=== PATIENT | female | born 2005 | race Caucasian/White ===

== ENCOUNTER 2024-02-07 19:42 | Outpatient (REF) | payer OTHER, SELFPAY ==
--- OUTSIDE RECORDS SUMMARY | 2024-02-07 19:44 | XMS_ITS ---
Author Organization [facility] enter [place] Address [address] [place], [place] [id number] Care Team Providers Care Instrumentation And Controls Technician Name Role Phone Sreedhar Pablo Unavailable [phone] Hugh Corey Unavailable ALLERGIES No Known Allergies RESULTS Component Value Reference Range Notes Rapid Strep Reviewed date:01/12/2024 05:17:19 PM Interpretation: Performing Lab: Notes/Report: Pod3 ([id number]), [facility] Lot: [id number] Undercollar Maker: admin Strep A Negative Rapid Influenza A & B by RICARDO Reviewed date:02/04/2024 02:46:01 PM Interpretation:Negative for Influezna Performing Lab: Notes/Report: Influenza A, RICARDO Not Detected Not Detected Influenza B, RICARDO Not Detected Not Detected Rapid Covid Reviewed date:02/04/2024 02:46:46 PM Interpretation:Positive for SARS-CoV2 RNA Performing Lab: Notes/Report: SARS CoV-2 RICARDO Positive Negative REASON FOR VISIT Possible Moca, white sores in throat, body aches, headaches, congestion. AM,MA MEDICATIONS Medication SIG (Take, Route, Frequency, Duration) Notes Start Date End Date Status Amphetamine-Dextroamphetamin e 10 MG 1 tablet Orally once a day for 30 days 03/03/2024 Active Vyvanse 50 MG Oral 06/06/2021 Activ e buPROPion HCl ER (XL) 300 MG 1 tablet in the morning Oral Once a day for 90 days 12/24/2021 Active Lisdexamfetamine Dimesylate 50 MG 1 capsule in the morning Orally Once a day for 30 days 01/04/2024 Active Lisdexamfetamine Dimesylate 50 MG 1 capsule in the morning Orally Once a day for 30 days 02/03/2024 Active Lisdexamfetamine Dimesylate 30 MG 1 capsule in the morning Orally Once a day for 30 days 03/03/2024 Active Amphetamine-Dextroamphetamin e 10 MG 1 tablet Orally once a day for 30 days 01/04/2024 Active Amphetamine-Dextroamphetamin e 10 MG 1 tablet Orally once a day for 30 days 02/03/2024 Active SOCIAL HISTORY Tobacco Use: Social History Observation Description Date Details (start date - stop date) Never Smoker NA - NA Sex Assigned At : Social History Observation Description Sex Assigned At Unknown Tobacco Use/Smoking Question Answer Notes Tobacco use: nonsmoker Alcohol Screen (Audit-C) Question Answer Notes Did you have a drink containing alcohol in the p ast year? No Points 0 Interpretation Negative Tobacco use other than smoking: Question Answer Notes Are you an other tobacco user? No VITAL SIGNS Temperature 96.8 degrees Fahrenheit 01/12/20 24 Blood pressure systolic 106 mm Hg 01/12/20 24 Blood pressure diastolic 68 mm Hg 024 Heart Rate 78 /min 01/12/2024 Height 65 in 01/12/2024 Weight 133.38 lbs 01/12/2024 BMI 22.19 kg/m2 01/12/2024 Oximetry 98 % 01/12/2024 Height-cm 165.10 cm 01/12/2024 Weight-kg 60.5 kg 01/12/2024 Encounters Encounter Location Date Provider Diagnosis [facility] [address] [place], [place] [id number] 01/12/2024 Hugh Corey COVID U07.1 ; Sore throat J02.9 ; Major depressive disorder, single episode, moderate F32.1 and Body mass index [BMI] pediatric, 5th percentile to less than 85th percentile for age Z68.52 ASSESSMENTS Encounter Date Diagnosis Assessment Notes Treatment Notes Treatment Clinical Notes 01/12/2024 COVID (ICD-10 - U07.1) Tested positive for COVID-19 Reviewed treatment options- echinacea with goldenseal Patient may increase vitamin C, Zinc, and vitamin D. Instructed to isolate for 5 days, with an additional 5 days of increased caution and mask-wearing. If the patient has repeat test return a negative result, they may return to normal activity sooner. Additionally, if they continue to have fevers, it can be assumed they are still contagious. If SOB, Chest pain, increased WOB, or oxygen saturations drop below 90% - pt instructed to go to ER. Otherwise, RTC if persistent or worsening of symptoms. 01/12/2024 Sore throat (ICD-10 - J02.9) 01/12/2024 Major depressive disorder, single episode, moderate (ICD-10 - F32.1) Pt attestation review: for depression Doing well on current medication. Denies any side effects. Pt continues therapy with a counselor. Pt denies suicidal ideation. Discussed that medication should continue for at least 6-12 months, but if any continuing symptoms, or a recurrent depression, then likely expect to be treated intermediate designer. Do not stop medication suddenly. RTC when requested by PCP, for med check, sooner if any change in symptoms or side effects. 01/12/2024 Body mass index [BMI] pediatric, 5th percentile to less than 85th percentile for age (ICD-10 - Z68.52) Healthy weight for patient's height. Encouraged healthy diet and regular exercise. 01/12/2024 Other Liane Root PNP PLAN OF TREATMENT Treatment Notes Assessment Notes COVID Tested positive for COVID-19 Reviewed treatment options- echinacea with goldenseal Patient may increase vitamin C, Zinc, and vitamin D. Instructed to isolate for 5 days, with an additional 5 days of increased caution and mask-wearing. If the patient has repeat test return a negative result, they may return to normal activity sooner. Additionally, if they continue to have fevers, it can be assumed they are still contagious. If SOB, Chest pain, increased WOB, or oxygen saturations drop below 90% - pt instructed to go to ER. Otherwise, RTC if persistent or worsening of symptoms. Major depressive disorder, s partha episode, moderate Pt attestation review: for depression Doing well on current medication. Denies any side effects. Pt continues therapy with a counselor. Pt denies suicidal ideation. Discussed that medication should continue for at least 6-12 months, but if any continuing symptoms, or a recurrent depression, then likely expect to be treated intermediate designer. Do not stop medication suddenly. RTC when requested by PCP, for med check, sooner if any change in symptoms or side effects. Body mass index [BMI] pediat shelley, 5th percentile to less than 85th percentile for age Healthy weight for patient's height. Encouraged healthy diet and regular exercise. Peter EVANS Next Appt Details Follow Up: prn, Reason: Progress Notes * ABBY RASMUSSEN MDOB:2004 (18 yo F)Acc No.[id number]:01/12/2024 Patient:??ABBY RASMUSSEN Provider:??Hugh Corey M.D. :2005?Age:18 Y?Sex:Fe male Date:01/12/2024 Address:[facility] [address] [id number] Subjective: * Chief Complaints: * ?1. Possible Moca, whit e sores in throat, body aches, headaches, congestion. AM,RICKEY. * HPI: ?*General HPI:? Pt with mother. ?Pt has had a sore throat, congestion, body aches, headache and sores in throat, for 1 day. ?No fever. ?Eating and drinking normal ?has taken DayQuil, ?Tylenol and ibuprofen, given @ 1530 today. * ROS:?General / Constitutional:?Patient denies??fever, cough, shortness of breath, nausea/vomiting, diarrhea, abdominal pain, dysuria.? * Medical History:?? * Surgical History:??Denies Nghia chapman Surgical History. * Hospitalization/Major Diagno stic Procedure:??Denies Past Hospitalization. * Family History:??3 brother(s ) , 1 sister(s) - healthy. .?? * Social History:?Tobacco Use:?Tobacco Use/Smoking?Tobacco use:??nonsmoker ?Tobacco use other than smoking?Are you an other tobacco user???No ?Household For Adult:?Employment: No. ?Martial Status: Single. ?Exercise: Basketball. ?Children: none. ?Drugs/Alcohol:?Drugs?Have you used drugs other than those for medical reasons in the past 12 months???No ?Do you smoke marijuana?: Denies. ?Do you drink alcohol?: No. * Medications:??Taking Vyvanse 50 MG Capsule Oral , Taking buPROPion HCl ER (XL) 300 MG Tablet Extended Release 24 Hour 1 tablet in the morning Oral Once a day , Taking Lisdexamfetamine Dimesylate 50 MG Capsule 1 capsule in the morning Orally Once a day , Taking Lisdexamfetamine Dimesylate 50 MG Capsule 1 capsule in the morning Orally Once a day , Taking Lisdexamfetamine Dimesylate 30 MG Capsule 1 capsule in the morning Orally Once a day , Taking Amphetamine-Dextroamphetamine 10 MG Tablet 1 tablet Orally once a day after vyvanse has worn off, Taking Amphetamine-Dextroamphetamine 10 MG Tablet 1 tablet Orally once a day after vyvanse has worn off, Taking Amphetamine-Dextroamphetamine 10 MG Tablet 1 tablet Orally once a day after vyvanse has worn off, Medication List reviewed and reconciled with the patient * Allergies:??N.K.D.A. Objective: * Vitals:??Ht:65in, Wt-k. 5, Wt:133.38lbs, BMI: 22.19 Index, Temp:96.8F, Oxygen sat %:98%, BP:106/68mm Hg, HR:78/min, Ht-cm: 165.10 cm, Body Surface Area: 1.66. * Examination: ?General Examination: ?General appearance:??alert, pleasant, well-nourished and in no acute distress.?Eyes:??pupils equal, round, reactive to light and accommodation, extraocular movement intact (EOMI).?Ears:??tympanic membrane intact and clear, light reflex present, both ears.?Nose:??nares patent.?Oral cavity:??normal.?Throat:??swollen and red tonsils, with white exudate on tonsils, uvula midline.?Neck / thyroid:??neck is supple, with full range of motion and no cervical lymphadenopathy.?Skin:??skin is warm and dry, with no rashes, good skin turgor and normal hair distribution.?Heart:??regular rate and rhythm without murmurs, gallops, clicks or rubs.?Lungs:??clear to auscultation bilaterally, with good air movement and no rales, rhonchi or wheezes.?Chest:??chest wall with no costochondral junction tenderness, no rib deformity and normal shape and expansion.?Abdomen:??soft with good bowel sounds, nontender, and no masses or hepatosplenomegaly.?Extremities:??normal extremity with no clubbing, cyanosis or edema.?Peripheral pulses:??2+ radial.?Neurologic:??alert and oriented, cooperative with exam, cognitive exam grossly normal.? Assessment: * Assessment: 1.??COVID - U07.1 (Primary)? ?2.??Sore throat - J02.9??3.??Major depressive disorder, single episode, moderate - F32.1, Src Problem: MAJOR MODERATE DEPRESSION, SINGLE EPISODE??4.??Body mass index [BMI] pediatric, 5th percentile to less than 85th percentile for age - Z68.52?? Plan: * Treatment: 2.??Major depressive disorde r, single episode, moderate?? Notes: Pt attestation review: for depression Doing well on current medication. Denies any side effects. Pt continues therapy with a counselor. Pt denies suicidal ideation. Discussed that medication should continue for at least 6-12 months, but if any continuing symptoms, or a recurrent depression, then likely expect to be treated retirement. Do not stop medication suddenly. RTC when requested by PCP, for med check, sooner if any change in symptoms or side effects.? 3.??Body mass index [BMI] pe diatric, 5th percentile to less than 85th percentile for age?? Notes: Healthy weight for patient's height. Encouraged healthy diet and regular exercise.? 4.??Others?LAB: Rapid Influenza A & B by RICARDO (Collection Date & Time - 01/12/2024 11:52 AM) ?LAB: Rapid Covid (Collection Date & Time - 01/12/2024 11:52 AM) ?LAB: Rapid Strep (Collection Date & Time - 01/12/2024 04:49 PM) Notes: Liane Root PNP? * Labs:?? * ?Lab: Rapid Influen za A & B by RICARDO (Collection Date & Time - 01/12/2024 11:52 AM)??Negative for Influezna ? Value Reference Range ?Influenza A, RICARDO Not Detected N ot Detected - * ?Influenza B, RICARDO Not Detected N ot Detected - ?Lab: Rapid Covid (Collection Date & Time - 01/12/2024 11:52 AM) ??Positive for SARS-CoV2 RNA* ? Value Reference Range ?SARS CoV-2 RICARDO Positive A Neg ative - ?Lab: Rapid Strep (Collection Date & Time - 01/12/2024 04:49 PM)* ? Value Reference Range ?Strep Grp A, RICARDO Negative - * Procedure Codes:??27474 Offi ce Visit, Est Pt., Level 4, 99446 COVID IN-HOUSE TESTING, Modifiers: QW , 29072 INFLUENZA DNA AMP PROBE, Modifiers: QW , 15513 STREP A, DNA, AMP PROBE, Modifiers: QW * Follow Up:??prn * Billing Information: * Visit Code:?? * Procedure Codes:?? 66024 Office Visit, Est Pt., Level 4. 93528 COVID IN-HOUSE TESTING. Modifiers: QW 96976 INFLUENZA DNA AMP PROBE. Modifiers: QW 93765 STREP A, DNA, AMP PROBE. Modifiers: QW * Sign off status: Pending * Provider:??Hugh Corey M.D. Mukesh e:??01/12/2024 History and Physical Notes * Examination Category Sub-Category Detail Notes General Examination General appearance: alert, p leasant, well-nourished and in no acute distress Eyes: pupils equal, round, reactive to light and accommodation, extraocular movement intact (EOMI) Ears: tympanic membrane in tact and clear, light reflex present, both ears Nose: nares patent Throat: swollen and red tons ils, with white exudate on tonsils, uvula midline Neck / thyroid: neck is supple, with full range of motion and no cervical lymphadenopathy Heart: regular rate and rhy thm without murmurs, gallops, clicks or rubs Chest: chest wall with no c ostochondral junction tenderness, no rib deformity and normal shape and expansion Lungs: clear to auscultatio n bilaterally, with good air movement and no rales, rhonchi or wheezes Abdomen: soft with good bowel sounds, nontender, and no masses or hepatosplenomegaly Neurologic: alert and oriented, cooperative with exam, cognitive exam grossly normal Skin: skin is warm and dry , with no rashes, good skin turgor and normal hair distribution Extremities: normal extremity wit h no clubbing, cyanosis or edema Peripheral pulses: 2+ radial Oral cavity: normal
--- OUTSIDE RECORDS SUMMARY | 2024-02-07 19:44 | XMS_ITS ---
Author Organization [facility] Address [address] [place], [place] [id number] Care Team Providers Care Meteorology Faculty Member Name Role Phone Pablo Eli Unavailable [phone] Neeraj Matta Unavailable [phone] ALLERGIES No Known Allergies REASON FOR VISIT Adult annual wellness W/O PAP MEDICATIONS Medication SIG (Take, Route, Frequency, Duration) Notes Start Date End Date Status Amphetamine-Dextroamphetamin e 10 MG 1 tablet Orally once a day for 30 days 03/03/2024 Active Lisdexamfetamine Dimesylate 30 MG 1 capsule in the morning Orally Once a day for 30 days 03/03/2024 Active Lisdexamfetamine Dimesylate 50 MG 1 capsule in the morning Orally Once a day for 30 days 02/03/2024 Active Amphetamine-Dextroamphetamin e 10 MG 1 tablet Orally once a day for 30 days 02/03/2024 Active Amphetamine-Dextroamphetamin e 10 MG 1 tablet Orally once a day for 30 days 01/04/2024 Active buPROPion HCl ER (XL) 300 MG 1 tablet in the morning Oral Once a day for 90 days 12/24/2021 Active Vyvanse 50 MG Oral 06/06/2021 Activ e Lisdexamfetamine Dimesylate 50 MG 1 capsule in the morning Orally Once a day for 30 days 01/04/2024 Active Encounters Encounter Location Date Provider Diagnosis [facility] [address] [place], [place] [id number] 01/05/2024 Neeraj Matta Encounter for genera l adult medical examination without abnormal findings Z00.00 ASSESSMENTS Encounter Date Diagnosis Assessment Notes Treatment Notes Treatment Clinical Notes 01/05/2024 Encounter for general adult medical examination without abnormal findings (ICD-10 - Z00.00) PLAN OF TREATMENT Next Appt Details Follow Up: 1 Year, Reason: W shan check Progress Notes * ABBY RASMUSSEN MDOB:2004 (18 yo F)Acc No.[id number]:01/05/2024 Wellness with no pap Patient:??ABBY RASMUSSEN M Provider:??VENKATA Page :2005?Age:18 Y?Sex:Fe male Date:01/05/2024 Address:[facility] [address] [id number] Subjective: * Chief Complaints: * ?1. Adult annual wellne ss W/O PAP. * ROS:?General / Constitutional:?Patient denies??fever, congestion, cough, shortness of breath, nausea/vomiting, diarrhea, abdominal pain, dysuria ?.? * Medical History:??Medical Hi story Verified. * Surgical History:??Denies Pa st Surgical History. * Hospitalization/Major Diagno stic Procedure:??Denies Past Hospitalization. * Family History:??3 brother(s ) , 1 sister(s) - healthy. .??Non-Contributory.?? * Social History:?Household For Adult:?Employment: No. ?Martial Status: Single. ?Exercise: Basketball. ?Children: none. * Medications:??Taking Vyvanse 50 MG Capsule Oral [...] with the patient * Allergies:??N.K.D.A. Objective: * Examination: ?General Examination: ?General appearance:??alert, pleasant, well-nourished and in no acute distress.?Head:??normocephalic, atraumatic.?Eyes:??pupils equal, round, reactive to light and accommodation, extraocular movement intact (EOMI).?Ears:??auditory canal clear, tympanic membrane intact and clear bilaterally.?Nose:??nares patent.?Oral cavity:??normal.?Throat:??clear, no erythema, no exudate.?Neck / thyroid:??neck is supple, with full range of motion and no cervical lymphadenopathy.?Lymph nodes:??no cervical lymphadenopathy.?Skin:??skin is warm and dry, with [...] hepatosplenomegaly.?Extremities:??normal extremity with no clubbing, cyanosis or edema.?Neurologic:??alert and oriented, cooperative with exam, cognitive exam grossly normal.? Assessment: * Assessment: 1.??Encounter for general ad ult medical examination without abnormal findings - Z00.00 (Primary)?? Plan: * Treatment: * Procedure Codes:??87502 No S how * Follow Up:??1 Year (Reason: Well check) * Billing Information: * Visit Code:?? * Procedure Codes:?? 50669 No Show. * Sign off status: Pending * Provider:??VENKATA Page Date:??12/22 History and Physical Notes * Examination Category Sub-Category Detail Notes General Examination General appearance: alert, p leasant, well-nourished and in no acute distress Head: normocephalic, atrau matic Eyes: pupils equal, round, reactive to light and accommodation, extraocular movement intact (EOMI) Ears: auditory canal clear , tympanic membrane intact and clear bilaterally Nose: nares patent Throat: clear, no erythema, no exudate Neck / thyroid: neck is supple, with [...] wit h no clubbing, cyanosis or edema Lymph nodes: no cervical lymphade nopathy Oral cavity: normal
--- OUTSIDE RECORDS SUMMARY | 2024-02-07 19:45 | XMS_ITS | Continuity of Care Document ---
Author Organization [facility] Address [address] [place] [id number] Care Team Providers Care Learning Coach Name Role Phone NOLBERTO DOWNS Primary Care Physician Encounter Date(s): 01/09/23 - 01/09/23 [facility] [address] [address] Discharge Disposition: Home or Self Care Attending Physician: JESSI DOWNS KEVIN A. Admitting Physician: JESSI DOWNS KEVIN A. Allergies, Adverse Reactions, Alerts No Known Allergies Assessment and Plan Future Appointments Appointment Date:04/13/2023 02:20:00 PM Scheduled Provider:MD BROWN LINDSAY H. Location:[facility] Appointment Type:DE RO Routine Office Visit Immunizations Given and Recorded Vaccine Date Status Refusal Reason SARS-CoV-2 (COVID-19) mRNA-1273 vaccine 1, 2 06/07/21 Given influenza virus vaccine, inactivated 3, 4 04/08/21 Given influenza virus vaccine, inactivated 5, 6 05/10/20 Given influenza virus vaccine, inactivated 7, 8 04/01/19 Given influenza virus vaccine, inactivated 9, 10 04/04/18 Given SARS-CoV-2 (COVID-19) mRNA BNT-162b2 vac 11, 12 1 Given SARS-CoV-2 (COVID-19) mRNA BNT-162b2 vac 13, 14 1 Given meningococcal conjugate vaccine 15, 16 05/10/ Gi griselda human papillomavirus vaccine 17, 18 18 Given human papillomavirus vaccine 19, 20 01/24/16 Given tetanus/diphth/pertuss (Tdap) adult/adol 21, 22 01/24/16 Given meningococcal vaccine 23 12/18/15 Given influenza virus vaccine, live 24, 25 04/26/12 Give n measles/mumps/rubella virus vaccine 26, 27 10/31/08 Given measles/mumps/rubella virus vaccine 28, 29 12/04/04 Given poliovirus vaccine, inactivated 30, 31 10/31/08 Gi griselda poliovirus vaccine, inactivated 32, 33 03/27/04 Gi griselda poliovirus vaccine, inactivated 34, 35 03 Gi griselda poliovirus vaccine, inactivated 36, 37 03 Gi griselda diphtheria/pertussis, acel/tetanus ped 38 10/31/08 Given diphtheria/pertussis, acel/tetanus ped 39, 40 03 Given diphtheria/pertussis, acel/tetanus ped 41, 42 03 Given diphtheria/pertussis, acel/tetanus ped 43, 44 03 Given varicella virus vaccine 45, 46 10/31/08 Given varicella virus vaccine 47, 48 12/04/04 Given hepatitis A pediatric vaccine 49, 50 10/31/08 Give n hepatitis A pediatric vaccine 51, 52 09/08/05 Give n pneumococcal 7-valent vaccine 53, 54 12/04/04 Give n pneumococcal 7-valent vaccine 55, 56 07/02/04 Give n pneumococcal 7-valent vaccine 57, 58 03 Give n pneumococcal 7-valent vaccine 59, 60 03 Give n diphth/tetanus/pertusis,acel/haemophilus 61, 62 07/02/04 Given hepatitis B pediatric vaccine 63, 64 03/27/04 Give n hepatitis B pediatric vaccine 65 03 Given influenza virus vaccine, split virus 66, 67 03/27/04 Given haemophilus b conjugate (HbOC) vaccine 68, 69 03 Given haemophilus b conjugate (HbOC) vaccine 70, 71 03 Given haemophilus b-hepatitis B vaccine 72, 73 03 Given 1Location History: [address] 2Result Comment: New immunization record 3Location History: [address] [facility] 4Result Comment: New immunization record 5Location History: [address] 6Result Comment: New immunization record 7Location History: [address] 8Result Comment: New immunization record 9Location History: [address] 10Result Comment: New immunization record 11Location History: [address] 12Result Comment: New immunization record 13Location History: [address] 14Result Comment: New immunization record 15Location History: [address] 16Result Comment: New immunization record 17Location History: [address] 18Result Comment: New immunization record 19Location History: [address] 20Result Comment: New immunization record 21Location History: [address] 22Result Comment: New immunization record 23Result Comment: Historical information - source unspecified 24Location History: [address] 25Result Comment: New immunization record 26Location History: [address] 27Result Comment: New immunization record 28Location History: [address] 29Result Comment: New immunization record 30Location History: [address] 31Result Comment: New immunization record 32Location History: [address] 33Result Comment: New immunization record 34Location History: [address] 35Result Comment: New immunization record 36Location History: [address] 37Result Comment: New immunization record 38Result Comment: Historical information - source unspecified 39Location History: [address] 40Result Comment: New immunization record 41Location History: [address] 42Result Comment: New immunization record 43Location History: [address] 44Result Comment: New immunization record 45Location History: [address] 46Result Comment: New immunization record 47Location History: [address] 48Result Comment: New immunization record 49Location History: [address] 50Result Comment: New immunization record 51Location History: [address] 52Result Comment: New immunization record 53Location History: [address] 54Result Comment: New immunization record 55Location History: [address] 56Result Comment: New immunization record 57Location History: [address] 58Result Comment: New immunization record 59Location History: [address] 60Result Comment: New immunization record 61Location History: [address] 62Result Comment: New immunization record 63Location History: [address] 64Result Comment: New immunization record 65Result Comment: Historical information - source unspecified 66Location History: [address] 67Result Comment: New immunization record 68Location History: [address] 69Result Comment: New immunization record 70Location History: [address] 71Result Comment: New immunization record 72Location History: [address] 73Result Comment: New immunization record Medications Bactrim DS 800 mg-160 mg oral tablet trimethoprim 1 tabs, Oral, BID, X 30 days, # 60 tabs, 2 Refill(s), Signed: 11/18/21 9:24:00 MDT, Acute, 02/16/22, Pharmacy: [facility] [id number] [facility], 1 tabs Oral BID,x30 days Start Date: 11/18/21 Stop Date: 02/16/22 Status: Completed ISOtretinoin 40 mg oral capsule 1 cap, Oral, Daily, with food [id number], # 30 cap, 0 Refill(s), Signed: 12/18/21 9:49:00 Jaky WILLIAM, Pharmacy: [facility] [id number] [facility] Start Date: 12/18/21 Stop Date: 01/12/22 Status: Completed ISOtretinoin 40 mg oral capsule 1 cap, Oral, Daily, with food [id number], # 30 cap, 0 Refill(s), Signed: 01/12/22 8:22:00 MDT, Maintenance, Pharmacy: [facility] [id number] [facility], 1 cap Oral Daily,Instr:with food; [id number] Start Date: 01/12/22 Status: Ordered spironolactone 100 mg oral tablet 1 tabs, Oral, Daily, # 90 tabs, 3 Refill(s), Signed: 07/21/21 10:07:00 MST, Maintenance, Pharmacy: [facility] [id number] [facility], 1 tabs Oral Daily, Acne Start Date: 07/21/21 Status: Ordered sulfamethoxazole-trimethoprim 400 mg-80 mg oral tablet trimethoprim 1 tabs, Oral, BID, X 10 days, # 30 tabs, 1 Refill(s), Signed: 06/30/22 17:24:00 MST, Acute, 07/20/22, Pharmacy: [facility] [id number] [facility], 1 tabs Oral BID,x10 days Start Date: 06/30/22 Stop Date: 07/20/22 Status: Completed tretinoin 0.025% topical cream 1 appl, Topical, Daily at bedtime, # 30 g, 3 Refill(s), Signed: 07/21/21 10:11:00 MST, Maintenance,Pharmacy: [facility] [id number] [facility], 1 appl Topical Daily at bedtime, Acne Start Date: 07/21/21 Status: Ordered Vyvanse 50 mg oral capsule 1 cap, Oral, every morning, 0 Refill(s), Signed: 07/21/21 9:58:00 MST, Maintenance Start Date: 07/21/21 Status: Ordered Wellbutrin SR 150 mg/12 hours oral tablet, extended release 1 tabs, Oral, BID, 0 Refill(s), Signed: 07/21/21 9:58:00 MST, Maintenance Start Date: 07/21/21 Status: Ordered Problem List Condition Confirmation Course Effective Dates Status Health St [facility] Informant Acne Confirmed Active Medication monitoring encounter Confirmed Active Social History Social History Type Response Smoking Status Never smoker entered on: 11/18/21 Sex Patient Care team information Care Team Personnel Name: JESSI DOWNS, NOLBERTO Bowens Position: Nurse Practitioner ALEXANDER Member Role: Primary Care Physician Address: Address: [facility] [address] [facility] Care Team Related Persons Name: LEILA RASMUSSEN Address: Home [address] [place], [place] [id number] [facility] Address: Temporary [address] [place], [place] [id number] Name: ONESIMO RASMUSSEN
--- OUTSIDE RECORDS SUMMARY | 2024-02-07 19:45 | XMS_ITS ---
Author Organization [facility] Address [address] [place], [place] [id number] Care Team Providers Care Sustainable Development Policy Analyst Name Role Phone Pablo Eli Unavailable [phone] PaxtonNeeraj khan Unavailable [phone] ALLERGIES No Known Allergies REASON FOR VISIT MED CHK AH, MA MEDICATIONS Medication SIG (Take, Route, Frequency, Duration) Notes Start Date End Date Status Amphetamine-Dextroamphetamin e 10 MG 1 tablet Orally once a day for 30 days 02/03/2024 Active Amphetamine-Dextroamphetamin e 10 MG 1 tablet Orally once a day for 30 days 03/03/2024 Active buPROPion HCl ER (XL) 300 MG 1 tablet in the morning Oral Once a day for 90 days 12/24/2021 Active Vyvanse 50 MG Oral 06/06/2021 Activ e Amphetamine-Dextroamphetamin e 10 MG 1 tablet Orally once a day for 30 days 01/04/2024 Active Lisdexamfetamine Dimesylate 50 MG 1 capsule in the morning Orally Once a day for 30 days 02/03/2024 Active Lisdexamfetamine Dimesylate 50 MG 1 capsule in the morning Orally Once a day for 30 days 01/04/2024 Active Lisdexamfetamine Dimesylate 30 MG 1 capsule in the morning Orally Once a day for 30 days 03/03/2024 Active SOCIAL HISTORY Tobacco Use: Social History [...] ast year? No Points 0 Interpretation Negative VITAL SIGNS Temperature 96.5 degrees Fahrenheit 01/04/20 24 Blood pressure systolic 116 mm Hg 01/04/20 24 Blood pressure diastolic 73 mm Hg 024 Heart Rate 68 /min 01/04/2024 Height 65 in 01/04/2024 Weight 131.06 lbs 01/04/2024 BMI 21.81 kg/m2 01/04/2024 Oximetry 97 % 01/04/2024 Height-cm 165.10 cm 01/04/2024 Weight-kg 59.45 kg 01/04/2024 Encounters Encounter Location Date Provider Diagnosis [facility] [address] [place], [place] [id number] 01/04/2024 Neeraj Matta Major depressive disorder, single episode, moderate F32.1 and Attention-deficit hyperactivity disorder, predominantly inattentive type F90.0 ASSESSMENTS Encounter Date Diagnosis Assessment Notes Treatment Notes Treatment Clinical Notes 01/04/2024 Major depressive disorder, single episode, moderate (ICD-10 - F32.1) Patient is following up for depression. Significant improvement on medication. Plan to: Continue wellbutrin No significant side effects. Continue with therapy if established, consider establishing if not. Patient denies suicidal ideation. Return to clinic for worsening symptoms, side effects, thoughts of self harm, or other concerns. 01/04/2024 Attention-deficit hyperactivity disorder, predominantly inattentive type (ICD-10 - F90.0) -After reviewing the effects of the prescribed medication on this patient and discussing changes in behaviors at home and work we have decided to continue the same medications. It was recommended to take medication with food on a daily basis. Follow up in 3-6 months or sooner if needed. -In conjunction with prescribing a controlled substance, the [facility] was reviewed and patient prescription behavior is compliant with treatment plan. 01/04/2024 Other PLAN OF TREATMENT Medication Medication Name Sig Start Date Stop Date Notes Amphetamine-Dextroamphetamin e 10 MG 1 tablet Orally once a day for 30 days 02/03/2024 Amphetamine-Dextroamphetamin e 10 MG 1 tablet Orally once a day for 30 days 03/03/2024 buPROPion HCl ER (XL) 300 MG 1 tablet in the morning Oral Once a day for 90 days 12/24/2021 Amphetamine-Dextroamphetamin e 10 MG 1 tablet Orally once a day for 30 days 01/04/2024 Lisdexamfetamine Dimesylate 50 MG 1 caps ule in the morning Orally Once a day for 30 days 02/03/2024 Lisdexamfetamine Dimesylate 50 MG 1 caps ule in the morning Orally Once a day for 30 days 01/04/2024 Lisdexamfetamine Dimesylate 30 MG 1 caps ule in the morning Orally Once a day for 30 days 03/03/2024 Treatment Notes Assessment Notes Major depressive disorder, s partha episode, moderate Patient is following up for depression. Significant improvement on medication. Plan to: Continue wellbutrin No significant side effects. Continue with therapy if established, consider establishing if not. Patient denies suicidal ideation. Return to clinic for worsening symptoms, side effects, thoughts of self harm, or other concerns. Attention-deficit hyperactiv ity disorder, predominantly inattentive type -After reviewing the effects of the prescribed medication on this patient and discussing changes in behaviors at home and work we have decided to continue the same medications. It was recommended to take medication with food on a daily basis. Follow up in 3-6 months or sooner if needed. -In conjunction with prescribing a controlled substance, the [facility] was reviewed and patient prescription behavior is compliant with treatment plan. Next Appt Details Follow Up: 3 Months, Reason: Progress Notes * ABBY RASMUSSEN MDOB:2004 (18 yo F)Acc No.[id number]:01/04/2024 Patient:??ABBY RASMUSSEN Provider:??VENKATA Page :2005?Age:18 Y?Sex:Fe male Date:01/04/2024 Address:[address] [place] [address] [address], [id number] Subjective: * Chief Complaints: * ?1. MED CHK RICKEY MACDONALD. * HPI: ?*General HPI:? Med refills. ?Transfer to [facility]. ?Still playing basketball. ?Doing well in school. * ROS:?No congestion, cough, fever, nausea/vomiting, diarrhea, abdominal pain, shortness of breath. * Medical History:??Medical Hi story Verified. * Surgical History:??Denies Pa st Surgical History. * Hospitalization/Major Diagno stic Procedure:??Denies Past Hospitalization. * Family History:??3 brother(s ) , 1 sister(s) - healthy. .?? * Social History:?Tobacco Use:?Tobacco Use/Smoking?Tobacco use:??nonsmoker ?Household For Adult:?Employment: No. ?Martial Status: Single. ?Exercise: Basketball. ?Children: none. ?Drugs/Alcohol:?Drugs?Have you used drugs other than those for medical reasons in the past 12 months???No ?Do you smoke marijuana?: Denies. ?Do you drink alcohol?: No. * Medications:??Taking Vyvanse 50 MG Capsule Oral , Taking buPROPion HCl ER (XL) 300 MG Tablet Extended Release 24 Hour Oral , Taking Lisdexamfetamine Dimesylate 50 MG Capsule [...] day after vyvanse has worn off, Taking Lisdexamfetamine Dimesylate 30 MG Capsule 1 capsule in the morning Orally Once a day , Medication List reviewed and reconciled with the patient * Allergies:??N.K.D.A. Objective: * Vitals:??Ht:65in, Wt-k. 45, Wt:131.06lbs, BMI: 21.81 Index, Temp:96.5F, Oxygen sat %:97%, BP:116/73mm Hg, HR:68/min, Ht-cm: 165.10 cm, Body Surface Area: 1.65. * Examination: ?General Examination: ?General appearance:??alert, pleasant, well-nourished and in no acute distress.?Head:??normocephalic, atraumatic.?Eyes:??open, no injection.?Oral cavity:??no difficulty swallowing, Normal voice.?Neck / thyroid:??No apparent limitation of movement.?Skin:??no visible rashes.?Lungs:??Breathing easily, no distress, no audible wheezing or coughing.?Abdomen:??Not visibly distended.?Extremities:??normal extremity cyanosis or edema, full range of motion, no purpura present.?Neurologic:??nonfocal, alert and oriented, cognitively intact, moves all extremities normally.?Psych:??normal affect / mood, cognitive function intact, cooperative with exam, maintains good eye contact,.? Assessment: * Assessment: 1.??Attention-deficit hypera ctivity disorder, predominantly inattentive type - F90.0 (Primary)??2.??Major depressive disorder, single episode, moderate - F32.1?? Plan: * Treatment: 2.??Major depressive disorde r, single episode, moderate?? Refill buPROPion HCl ER (XL) Tablet Extended Release 24 Hour, 300 MG, 1 tablet in the morning, Oral, Once a day, 90 days, 90 Tablet, Refills 3.? Notes: Patient is following up for depression. Significant improvement on medication. Plan to: Continue wellbutrin No significant side effects. Continue with therapy if established, consider establishing if not. Patient denies suicidal ideation. Return to clinic for worsening symptoms, side effects, thoughts of self harm, or other concerns. ? * Procedure Codes:??78392 Offi ce Visit, Est Pt., Level 3, 3074F SYST BP LT 130 MM HG, 3078F DIAST BP < 80 MM HG * Follow Up:??3 Months * Billing Information: * Visit Code:?? * Procedure Codes:?? 27298 Office Visit, Est Pt., Level 3. 3074F SYST BP LT 130 MM HG. 3078F DIAST BP < 80 MM HG. * Sign off status: Completed true * Provider:??VENKATA Page Date:??12/22 History and Physical Notes * Examination Category Sub-Category Detail Notes General Examination General appearance: alert, p leasant, well-nourished and in no acute distress Head: normocephalic, atrau matic Eyes: open, no injection Neck / thyroid: No apparent limitati on of movement Lungs: Breathing easily, no distress, no audible wheezing or coughing Abdomen: Not visibly distende d Neurologic: nonfocal, alert and oriented, cognitively intact, moves all extremities normally Skin: no visible rashes Extremities: normal extremity cya nosis or edema, full range of motion, no purpura present Psych: normal affect / mood , cognitive function intact, cooperative with exam, maintains good eye contact, Oral cavity: no difficulty swallo wing, Normal voice
--- OUTSIDE RECORDS SUMMARY | 2024-02-07 19:45 | XMS_ITS | Patient Health Record ---
Author Organization [facility] [place] Address [address] [place], [place] [phone] Care Team Providers Care Forms Analysis Manager Name Role Phone Pablo Eli Unavailable [phone] Hugh Corey Unavailable Neeraj Matta Unavailable [phone] Oscar Albarado Unavailable [phone] ALLERGIES No Known Allergies RESULTS Component Value Reference Range Notes Rapid Strep Reviewed date:01/12/2024 05:17:19 PM Interpretation: Performing Lab: Notes/Report: Pod3 ([id number]), [facility] Lot: [id number] Silk Trimmer: admin Strep A Negative Rapid Influenza A & B by RICARDO Reviewed date:02/04/2024 02:46:01 PM Interpretation:Negative for Influezna Performing Lab: Notes/Report: Influenza A, RICARDO Not Detected Not Detected Influenza B, RICARDO Not Detected Not Detected Rapid Covid Reviewed date:02/04/2024 02:46:46 PM Interpretation:Positive for SARS-CoV2 RNA Performing Lab: Notes/Report: SARS CoV-2 RICARDO Positive Negative REASON FOR REFERRAL No Information MEDICATIONS Medication SIG (Take, Route, Frequency, Duration) Notes Start Date End Date Status Lisdexamfetamine Dimesylate 30 MG 1 capsule in [...] a day for 30 days 02/03/2024 Active IMMUNIZATIONS Vaccine Route Administration Date Status Comme nts FluZone (Influenza) IM Intramuscular 03/17/2023 Administer ed HPV9 (human papillomavirus), nonavalent IM Intramuscular 01/24/2016 Administered HPV9 (human papillomavirus), nonavalent IM Intramuscular 04/04/2018 Administered Influenza, quadrivalent (IIV4), split virus, 6-35 months dosage IM Intramuscular 04/01/2019 Administered Influenza, quadrivalent (IIV4), split virus, 6-35 months dosage IM Intramuscular 05/10/2020 Administered Influenza, quadrivalent, split, preservative free, 3 years or older IM Intramuscular 04/04/2018 Administered Meningococcal MCV4P IM Intramuscular 05/10/2020 Administer ed SOCIAL HISTORY Tobacco Use: Social History Observation [...] Are you an other tobacco user? 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 [id number] M RI IHC 12/2022 Problem Major depressive disorder, single episode, moderate (F32.1) 019 Active confirmed Moderate major depression, single episode (66167604) Problem Attention-deficit hyperactivity disorder, predominantly inattentive type (F90.0) 020 Active confirmed Attention defici t hyperactivity disorder, predominantly inattentive type (19218505) Problem Acne vulgaris (L70.0) 021 Active confirmed Acne vulgaris (29793575) VITAL SIGNS Heart Rate 78 /min 01/12/2024 Temperature 96.8 degrees Fahrenheit 01/12/2024 Height-cm 165.10 cm 01/12/2024 Blood pressure diastolic 68 mm Hg 01/12/2024 Oximetry 98 % 01/12/2024 Weight-kg 60.5 kg 01/12/2024 BMI Percentile 56.04 % 03/17/2023 Height 65 in 01/12/2024 Blood pressure systolic 106 mm Hg 01/12/2024 Weight 133.38 lbs 01/12/2024 BMI 22.19 kg/m2 01/12/2024 Encounters Encounter Location Date Provider Diagnosis [facility] [address] [place], [place] [phone] 03/11/2023 Neeraj Matta [facility] [address] [place], [place] [id number] 09/29/2023 Oscar Albarado [facility] [address] [place], [place] [id number] 01/03/2024 Neeraj Matta [facility] [address] [place], [place] [phone] 01/05/2024 Neeraj Matta Encounter for general adult medical examination without abnormal findings Z00.00 [facility] [address] [place], [place] [id number] 01/12/2024 Hugh Lugoworth COVID U07.1 ; Sore throat J02.9 ; Major depressive disorder, single episode, moderate F32.1 and Body mass index [BMI] pediatric, 5th percentile to less than 85th percentile for age Z68.52 [facility] [address] [place], [place] [phone] 03/17/2023 Neeraj Matta Attention-deficit hyperactivity disorder, predominantly inattentive type F90.0 and Encounter for immunization Z23 [facility] [address] [place], [place] [phone] 01/04/2024 Neeraj Matta Major depressive disorder, single episode, moderate F32.1 and Attention-deficit hyperactivity disorder, predominantly inattentive type F90.0 [facility] [address] [place], [place] [id number] 05/31/2023 Neeraj Matta Attention-deficit hyperactivity disorder, predominantly inattentive type F90.0 [facility] [address] [place], [place] [phone] 03/14/2023 Pablo Eli ASSESSMENTS Encounter Date Diagnosis Assessment Notes Treatment Notes Treatment Clinical Notes 03/17/2023 Attention-deficit hyperactivity disorder, predominantly inattentive type (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 It was recommended to take medication with food on a daily basis. Follow up in 3 months or sooner if needed. -In conjunction with prescribing a controlled substance, the [facility] was reviewed and patient prescription behavior is compliant with treatment plan. 05/31/2023 Attention-deficit hyperactivity disorder, predominantly inattentive type (ICD-10 - F90.0) 01/04/2024 Major depressive disorder, single episode, moderate [...] conjunction with prescribing a controlled substance, the [facility] was reviewed and patient prescription behavior is compliant with treatment plan. 01/05/2024 Encounter for general adult medical examination without abnormal findings (ICD-10 - Z00.00) 01/12/2024 Sore throat (ICD-10 - J02.9) 01/12/2024 COVID (ICD-10 - U07.1) Tested positive [...] if persistent or worsening of symptoms. 01/12/2024 Major depressive disorder, single episode, moderate (ICD-10 - F32.1) Pt attestation review: for depression Doing well on current medication. Denies any side effects. Pt continues therapy with a counselor. Pt denies suicidal ideation. Discussed that medication should continue for at least 6-12 months, but if any continuing symptoms, or a recurrent depression, then likely expect to be treated senior care. Do not stop medication suddenly. RTC when requested by PCP, for med check, sooner if any change in symptoms or side effects. 03/17/2023 Encounter for immunization (ICD-10 - Z23) 01/12/2024 Body mass index [BMI] pediatric, 5th percentile to less than 85th percentile for age (ICD-10 - Z68.52) Healthy weight for patient's height. Encouraged healthy diet and regular exercise. 01/12/2024 Other Liane Root PNP 01/04/2024 Other PLAN OF TREATMENT No Information Insurance Providers Payer Name Payer Address Payer Phone Subscriber Number Group Number Insured Name Patient Relationship to Insured Coverage Start Date Coverage End Date [facility] [address] [address] [place] [address] [phone] [id number] Marie VALENZUELA Child - Insured does not have Financial Responsibility (includes legally adopted child)
[2024-02-09 13:24] LABS: Hemoglobin S Screen Negative (Negative)
== END 2024-02-07 19:43 | disposition home or self-care (01) ==
LOC: LBN 19:42
PROVIDERS: Visit Provider Nurse Practitioner Family
DX: Z02.5 Encounter for examination for participation in sport (principal); Z01.89 Encounter for other specified special examinations
CPT/HCPCS: 85660

== ENCOUNTER 2024-04-03 20:43 | Emergency (ER) | payer OTHER, SELFPAY ==
[2024-04-03 20:47] VITALS: BP 127/82; PULSE 70; RESP 20; TEMP 36.8; O2SAT 98
--- NOTE | 2024-04-03 21:56 | ED.GENADUL_ITS ---
Discharge Plan Disposition Patient Disposition: Home Condition: Good Discharge Details Clinical Impression: Loose tooth due to trauma Primary Care Provider: Unknown,Unknown ED Provider: Caitlyn Manrique Home Meds and New Rx's Prescriptions: Continued dextroamphetamine-amphetamine [Adderall] 10 mg tablet 10 mg PO DAILY bupropion HCl [Wellbutrin SR] 100 mg tablet sustained-release 12 hr 150 mg PO DAILY lisdexamfetamine [Vyvanse] 50 mg capsule 50 mg PO DAILY Discharge Instructions Additional Instructions: Please call a local dentist (from list provided, or [facility], which provides emergency dental services at [phone]) to have a dental exam and treatment. Do not eat any firm foods- stick to a soft diet. Use tylenol and ibuprofen as needed for discomfort. HPI General Date/Time Provider Initiated Documentation: 04/03/24 20:50 . HPI Narrative: Berkley is a 18 year old female who presents to the emergency department today for evaluation of tooth pain after being elbowed by another player during basketball. She reports pain and loose R lower incisor tooth with generalized discomfort to her front teeth. She has a retainer bar in place. No neck pain, o ther dental damage, head injury. She does not have a local dentist, moved here from [place]. No diabetes, immunocompromise, or other serious medical conditions. Physical exam reassuring, tooth #25 noted to be slightly loose, no avulsion. No bleeding at gumline. Retainer is intact. No intraoral lesions. No trismus. Clear voice. No c-spine tenderness; full ROM. No other facial injuries noted. History and presentation consistent with dental injury. No red flags concerning for fracture or other serious etiology requiring emergent diagnostic imaging. No concern for airway compromise. While in the emergency department, Berkley received ibuprofen for discomfort. Reviewed discharge instructions with patient, including symptomatic management and importance of f/u with dental. Provided lists of local dentists. Related Data Home Medications ?Medication ?Instructions ?Recorded ?Confirmed bupropion HCl 100 mg tablet,12 hr 150 mg PO DAILY 02/07/24 04/03/24 sustained-release (Wellbutrin SR) dextroamphetamine-amphetamine 10 10 mg PO DAILY 02/07/24 04/03/24 mg tablet (Adderall) lisdexamfetamine 50 mg capsule 50 mg PO DAILY 02/07/24 04/03/24 (Vyvanse) Allergies Allergy/AdvReac Type Severity Reaction Status Date / Time No Known Allergies Allergy Verified 04/03/24 20:54 General Stated Complaint: DentalOral CHIQUIS: 4 Review of Systems Narrative: see HPI Exam Const General: cooperative, healthy appearing, comfortable, no acute distress, well developed and well groomed Nutritional Appearance: average body habitus and well nourished Orientation: alert and oriented x3 HENMT Head: normal to inspection, normocephalic and atraumatic General nose exam: external nose normal Face and sinus: normal facial exam Mouth: oral mucosae normal, lip normal and tongue normal Teeth and gingiva: other (slightly loose tooth #25, no avulsion or gumline disturbance) Throat: posterior oropharynx normal Neck Neck: normal visual inspection and full ROM Resp Effort & Inspection: normal respiratory effort and able to speak in complete sentences Back/Spine/Pelvis Cervical Spine: normal cervical lordosis, cervical ROM normal and No cervical spinal tenderness Course Vital Signs Vital signs: Vital Signs Temperature 36.8 C 04/03/24 20:47 Pulse 70 04/03/24 20:47 Respiratory Rate 20 04/03/24 20:47 Blood Pressure 127/82 04/03/24 20:47 Pulse Oximetry 98 04/03/24 20:47 Temperature 36.8 C 04/03/24 20:47 Pulse 70 04/03/24 20:47 Respiratory Rate 20 04/03/24 20:47 Respiratory Effort Normal 04/03/24 20:52 Blood Pressure 127/82 04/03/24 20:47 Blood Pressure Position Supine 04/03/24 20:47 Pulse Oximetry 98 04/03/24 20:47 Oxygen Delivery Method Room Air 04/03/24 20:47 Oxygen Flow Rate 0 04/03/24 20:47 Medical Decision Making Quality:SDOH Health Related Social Needs: No Data to Display PFSH All Active Problems (Updated 04/03/24 @ 22:06 by Caitlyn Marte) Loose tooth due to trauma (Acute) Social History Smoking/Tobacco Use Status: Never Smoking risk assessment performed?: Yes Alcohol Intake: never Drug use: Never Substance use type: does not use
== END 2024-04-03 22:20 | disposition home or self-care (01) ==
PROVIDERS: Emergency Provider Nurse Practitioner Family
DX: K08.89 Other specified disorders of teeth and supporting structures (principal); W50.0XXA Accidental hit or strike by another person, initial encounter; Y93.67 Activity, basketball
CPT/HCPCS: 99283

== ENCOUNTER 2024-09-20 22:19 | Outpatient (REF) | payer OTHER, SELFPAY ==
[2024-09-20 21:48] LABS: Abs Immature Grans 0.01 10^3/uL (0.0-0.06); Absolute Basophil Count 0.02 10^3/uL (0.0-0.2); Absolute Eosinophil Count 0.01 10^3/uL (0.0-0.7); Absolute Monocyte Count 0.51 10^3/uL (0.1-0.8); Absolute Neutrophil Count 4.19 10^3/uL (1.2-6.7); Basophils % 0.4 %; Eosinophils % 0.2 %; HCT 38.8 % (36.0-46.0); Immature Grans % 0.2 %; MCH 30.9 pg (27.0-33.0); MCHC 33.5 % (32.0-36.0); MCV 92 fL (80-95); MPV 10.7 fL (8.0-11.0); Neutrophils % 74.2 %; Platelet Count 204 10^3/uL (130-400); RBC 4.21 10^6/uL (3.93-5.22); RDW 11.9 % (11.7-14.6); RDW-SD 40.1 fL; WBC 5.64 10^3/uL (4.4-10.8)
[2024-09-22 13:37] LABS: EBNA IgG Positive (Negative); VCA IgG Positive (Negative); VCA IgM Equivocal (Negative)
== END 2024-09-20 22:20 | disposition home or self-care (01) ==
LOC: LBN 22:19
PROVIDERS: Visit Provider Nurse Practitioner Family
DX: J02.9 Acute pharyngitis, unspecified (principal); B34.9 Viral infection, unspecified
CPT/HCPCS: 85025; 86664; 86665; 87070